=== PATIENT | female | born 1980 | race Caucasian/White ===

== ENCOUNTER 2018-09-08 16:13 | Outpatient (CLI) | payer OTHER | END 2018-09-08 16:14 | disposition home or self-care (01) | LOC: BICMAMMO 16:13 | PROVIDERS: ATTEND Family Medicine | DX: Z12.31 Encounter for screening mammogram for malignant neoplasm of breast (principal) | CPT/HCPCS: 77063; 77067 ==

== ENCOUNTER 2019-03-31 07:51 | Outpatient (CLI) | payer OTHER ==
--- NOTE | 2019-03-31 10:33 | MRI ---
MR of the pelvis with and without contrast: INDICATION: 38-year-old female with endometriosis of the pelvis and peritoneum. TECHNIQUE: Multiplanar multisequence MR images were obtained of the pelvis with and without contrast utilizing 17 cc of MultiHance. No comparisons are available. FINDINGS: The uterus measures 9.7 x 6.0 x 6.6 cm. There is an arcuate uterus present. There is a pedu nculated submucosal fibroid projecting into the endometrial canal, extending off of the fundus measuring 2.0 x 1.7 cm. The junctional zone measures up to 9 mm anteriorly at the level the body. The posterior junction zone measures 6 mm at the level of the body. There are multiple nabothian cysts within the cervix. There is mild free fluid within the cul-de-sac. The right ovary measures 5.3 x 2.3 cm. There is a 2.1 cm involuting cyst within the right ovary. The left ovary measures 3.2 x 2.5 cm. There is no overt signal abnormality to suggest presence of an endometrial implant within the periton eum of the lower pelvis. There are a few scattered diverticula involving the colon. No pathologically enlarged lymph node is evident. No abnormal marrow signal abnormality is noted. IMPRESSION: 1. No evidence of endometrial implants seen within the lower pelvis. 2. Pedunculated submucosal fibroid projecting into the endometrial canal of the fundus. 3. Arcuate uterus. 4. Nabothian cysts. 5. Involuting cyst of the right ovary. 6. Colonic diverticulosis Transcribed Date/Time: 03/31/2019 10:55 AM
== END 2019-03-31 07:52 | disposition home or self-care (01) ==
LOC: MRI 07:51
PROVIDERS: ATTEND Obstetrics & Gynecology
DX: N80.3 Endometriosis of pelvic peritoneum (principal); D25.0 Submucous leiomyoma of uterus; Q51.810 Arcuate uterus; N88.8 Other specified noninflammatory disorders of cervix uteri; N83.291 Other ovarian cyst, right side; K57.30 Diverticulosis of large intestine without perforation or abscess without bleeding
CPT/HCPCS: 72197

== ENCOUNTER 2019-10-05 06:12 | Outpatient (CLI) | payer OTHER ==
[2019-10-05 17:17] LABS: Hemoglobin 11.8 g/dL (12.0-16.0); Mean Corpuscular HGB CONC 34.3 g/dL (32.0-36.0); Mean Corpuscular Volume 87.5 fL (78.0-98.0); Mean Platelet Volume 8.3 fL (7.4-10.4); Platelet Count 197 thou/uL (130-400); RBC Distribution Width 11.6 % (11.5-14.5); Red Blood Cell (RBC) Count 3.93 mill/uL (4.20-5.40); White Blood Cell (WBC) Count 6.8 thou/uL (4.8-10.8)
[2019-10-05 17:31] LABS: BHCG - Serum Negative (NEGATIVE); Pregs Control Background? CLEAR/WHITE (CLR/WHITE); Pregs Control Bar Appear? YES (CONTROL BAR)
== END 2019-10-05 06:13 | disposition home or self-care (01) ==
LOC: LABBT 06:12
PROVIDERS: ATTEND Obstetrics & Gynecology
DX: Z01.812 Encounter for preprocedural laboratory examination (principal); D25.0 Submucous leiomyoma of uterus
CPT/HCPCS: 84703; 85027; 86850; 86900; 86901

== ENCOUNTER 2019-10-11 08:11 | Day surgery (SDC) | payer OTHER ==
[2019-10-05 16:28] VITALS: BMI 29.5
--- NOTE | 2019-10-10 07:35 | HP ---
REASON FOR ADMISSION: Pelvic pain and dyspareunia, status post endometrial ablation with endocavitary uterine fibroids. SCHEDULED PROCEDURE: Total laparoscopic hysterectomy with bilateral salpingectomy. HISTORY OF PRESENT ILLNESS: Ms. Gay who is a 39-year-old, G2, P2, status post endometrial ablation. She has had worsening pelvic pain since earlier this year. Initial exam was worrisome for rectovaginal endometriosis; however, MRI of the pelvis did not reveal any endometriosis; however, 2 cm intracavitary pedunculated fibroid was found in a post ablative state and it was felt to likely be the source of the patient's pain. The patient desires definitive surgical management with hysterectomy. BEAN PICKER HISTORY: x2, negative Pap. PAST MEDICAL HISTORY: None. PAST SURGICAL HISTORY: Tonsils and endometrial ablation. ALLERGIES: NONE. MEDICATIONS: None. SOCIAL HISTORY: Denies tobacco, alcohol, or IV drug abuse. FAMILY HISTORY: Noncontributory. REVIEW OF SYSTEMS: Noncontributory. PHYSICAL EXAMINATION: VITAL SIGNS: Height 5 feet 6 inches, weight 187 pounds, BMI 30, blood pressure 110/72, pulse 69, respirations 18. HEENT: Within normal limits. LUNGS: Clear to auscultation bilaterally. HEART: Regular rhythm. BREASTS: No masses bilaterally. ABDOMEN: Soft, nontender. No rebound or guarding. Vulva without lesions. Vagina, without discharge. Cervix, parous. Uterus, anteverted, but tender posteriorly. No rectovaginal nodule appreciated. Adnexa, no masses. EXTREMITIES: Without clubbing, cyanosis, or edema. IMAGING STUDIES: MRI reveals findings as noted in the history of present illness. IMPRESSION: Uterine fibroids post ablation with chronic pelvic pain. PLAN: TLH and bilateral salpingectomy. Appropriate antibiotic and DVT prophylaxis. Job ID: [id number]
[2019-10-11] MEDS ORDERED: Famotidine/PF 20 mg/2ml Vial ONE (08:58)
[2019-10-11] MEDS ORDERED: CeleCOXIB 100 MG CAP ONE (08:58)
[2019-10-11] MEDS ORDERED: Gabapentin 300 MG CAP ONE (08:58)
[2019-10-11] MEDS ORDERED: Bupivacaine 0.25% HCL 30 ML VIAL ONE (09:23)
[2019-10-11] MEDS ORDERED: Lidocaine 1% w/Epinephrine 1:100K 20 ML VIAL ONE (09:23)
[2019-10-11] MEDS ORDERED: Bupivacaine PF 0.5% 30 ML VIAL ONE (09:25)
[2019-10-11] MEDS ORDERED: HYDROmorphone 0.5 MG/0.5 ML SYRINGE ONE ×2 (09:26→09:27)
[2019-10-11] MEDS ORDERED: Fentanyl 100 MCG/2 ML VIAL ONE (09:26)
[2019-10-11] MEDS ORDERED: Ketamine 50 MG/ML (10ML VIAL) ONE (09:28)
[2019-10-11] MEDS ORDERED: Ondansetron PF 4 MG/2 ML Vial IVP PRN (11:18)
[2019-10-11] MEDS ORDERED: diphenhydrAMINE 25 MG CAP PO PRN (11:18)
[2019-10-11] MEDS ORDERED: Bisacodyl 10 MG SUPP PR PRN (11:18)
[2019-10-11] MEDS ORDERED: Zolpidem Tartrate 5 MG TAB PO PRN (11:18)
[2019-10-11] MEDS ORDERED: Promethazine HCl 25 MG/ML VIAL IM PRN (11:18)
[2019-10-11] MEDS ORDERED: traMADol HCl 50 MG TAB PO PRN ×2 (11:18)
[2019-10-11] MEDS ORDERED: Simethicone Chewable 80 MG TAB PO PRN (11:18)
[2019-10-11] MEDS ORDERED: Morphine 4 MG/ML VIAL SLOW IVP PRN (11:18)
--- NOTE | 2019-10-11 12:01 | OP ---
DATE OF PROCEDURE: 10/11/2019 PREOPERATIVE DIAGNOSES: Chronic pelvic pain, postablation syndrome with posterior cul-de-sac tenderness. POSTOPERATIVE DIAGNOSES: Chronic pelvic pain, postablation syndrome with posterior cul-de-sac tenderness, retrograde menstruation and endometriotic nodule of the posterior cul-de-sac. PROCEDURES PERFORMED: Total laparoscopic hysterectomy, bilateral salpingectomy, and excision of endometriosis nodule. DRAGSAW OPERATOR: SHEFALI Nash. ANESTHESIA: General endotracheal. ESTIMATED BLOOD LOSS: Less than 100 mL. COMPLICATIONS: None. DRAINS: Holden to gravity. FINDINGS: 1. Significant retro menstruation noted at trocar entry. 2. Normal-appearing tubes and ovaries. 3. Inflammatory nodule midline just below the level of the cervix, posterior cul-de-sac, excised, consistent with endometriosis. 4. Hemostasis, clear urine, counts correct at the end of the procedure. DISPOSITION: Recovery room in good condition. DESCRIPTION OF PROCEDURE: After obtaining appropriate informed consent, the patient was taken to the operating room, where general endotracheal anesthesia was achieved without difficulty. The patient was prepped and draped in dorsal lithotomy in Ramez stirrups. Sliding speculum was placed in vagina. Cervix was identified, grasped with single-tooth tenaculum. The LINDA manipulator, 8 obturator, 3.5 cm vaginal figure refinisher and repairer were placed without difficulty. Holden catheter was placed. Hairspring Assembler changed his gloves, turned attention to abdominal portion of procedure. 5 mL of Marcaine was injected at the base of the umbilicus, and a 12 mm skin incision was made. Veress needle was placed inside the abdominal cavity. Insufflation was carried out with carbon dioxide for a maximum pressure of 15. 12 mm noncutting trocar was introduced and confirmation of entry into the peritoneal cavity without trauma to the underlying viscera was noted. Right and left lateral da Oscar ports were placed lateral to the epigastric vessels and an 11-mm assistant in nursing port was placed in the right upper quadrant. The patient was placed in steep Trendelenburg position, and the da Oscar robot docked. Monopolar scissors in the right hand and bipolar fenestrated forceps in the left. Findings as noted in the operative findings were noted. Ureters were identified bilaterally and noted to be well lateral to the cervix. Area suspicious for endometriosis was grasped with the atraumatic graspers and excised and sent for pathologic analysis separately. On the patient's left, the distal fallopian tube was grasped and the medial salpinx coagulated, transected, amputating the tube, and it was removed from the abdominal cavity. The utero-ovarian ligament broad and round were then coagulated and transected. This was carried down to the level of internal cervical os. At the level of internal cervical os, the peritoneum anteriorly was incised sharply and taken over to the level of the internal cervical os on the patient's right. The bladder was dissected bluntly and sharply off the cervix and upper vagina. Skeletonization of the uterine vessels on the patient's left was carried out. These were coagulated and then transected. Attention was turned to the patient's right where identical procedure was carried out, coagulating and transecting the mesosalpinx and amputated the fallopian tube. Then, coagulating and transecting the utero-ovarian, the broad, the round, and down to the level of internal cervical os. The level of internal cervical os skeletonization was carried out with uterine vessels and these were coagulated and transected. The uterine vessels of the patient's right much more tortuous and provided a greater portion of the blood supply of the uterus on the right than the one on the left. Once these were coagulated and then transected, the vagina was entered anteriorly at 12 o'clock and extended from 12 to 3, 12 to 9, 6 to 9, and 6 to 3 amputating the specimen and pulling the uterus into the vagina and maintained pneumoperitoneum. Suction irrigation was carried out along the cuff. Good hemostasis was noted. It was closed using a running continuous 2-0 PDS Stratafix suture from right to left and then back to right in a 2-layer manner. Suction irrigation was carried out. Good hemostasis was noted. Tisseel was initially applied across the surgical pad. However, it did not congeal and it was normally dissipated with Tisseel, so Lazaro was then used. Good hemostasis was noted throughout. After application of Lazaro, a the da Oscar instruments were removed. The da Oscar robot undocked. The abdomen desufflated of carbon dioxide and trocars removed x4. Fascia was reapproximated at the umbilicus using 0 Vicryl on a UR-5 needle. Skin was reapproximated x4 using 4-0 Monocryl and Dermabond. The specimen was removed from the vagina. Cuff was inspected and noted to be dry. Clear urine noted. The patient awakened, extubated to recovery room in good condition. Job ID: [id number]
[2019-10-11] MEDS ORDERED: Rocuronium Bromide 10 MG/ML (10ML VIAL) ONE (14:41)
[2019-10-11] MEDS ORDERED: Lidocaine 1% PF 5 ML VIAL ONE (14:41)
[2019-10-11] MEDS ORDERED: PROPOFOL 200 MG/20 ML VIAL ONE (14:41)
[2019-10-11] MEDS ORDERED: diphenhydrAMINE 50 MG/ML VIAL ONE (14:41)
[2019-10-11] MEDS ORDERED: Ondansetron PF 4 MG/2 ML Vial ONE (14:41)
[2019-10-11] MEDS ORDERED: Glycopyrrolate 0.2 MG/ML 5 ML SYRINGE ONE (14:41)
[2019-10-11] MEDS ORDERED: Dexamethasone 20 MG/5 ML VIAL ONE (14:41)
[2019-10-11] MEDS: Acetaminophen 1,000 MG in Premix Bag 1 BAG IVPB SCH ×2 (16:29→17:32)
[2019-10-11] MEDS: Ketorolac Tromethamine 30 MG/ML VIAL IVP SCH ×2 (16:29→17:30)
[2019-10-11 20:39] VITALS: TEMP 98.2
[2019-10-11] MEDS ORDERED: Gabapentin 300 MG CAP PO SCH (21:00)
[2019-10-11] MEDS: Sodium Chloride 0.9% 1,000 ML IV SCH (21:34)
[2019-10-12] MEDS: Ketorolac Tromethamine 30 MG/ML VIAL IVP SCH (00:11)
[2019-10-12] MEDS: Acetaminophen 1,000 MG in Premix Bag 1 BAG IVPB SCH (00:11)
[2019-10-12 00:21] VITALS: BP 127/74
[2019-10-12] MEDS ORDERED: Ibuprofen 800 MG TAB ONE (05:25)
[2019-10-12] MEDS ORDERED: Ibuprofen 800 MG TAB PO SCH (06:00)
--- NOTE | 2019-10-12 11:41 | DIS ---
DATE OF ADMISSION: 10/11/2019 DATE OF DISCHARGE: 10/12/2019 SUMMARY OF HOSPITAL CARE: The patient was admitted on the 3rd, underwent a TLH, bilateral salpingectomy. She had an unremarkable postoperative course and on postoperative day #1 was voiding with ease and tolerating p.o. PHYSICAL EXAMINATION: VITAL SIGNS: Stable. LUNGS: Clear to auscultation bilaterally. HEART: Regular rate and rhythm. ABDOMEN: Soft and nontender without rebound or guarding. No distention. Perineum dry. EXTREMITIES: No clubbing, cyanosis, or edema. IMPRESSION: Doing well, status post total laparoscopic hysterectomy. PLAN: Discharge home. The patient has scheduled followup and discharge medicines sent out from the office preoperatively. Job ID: [id number]
[2019-10-12 13:34] LABS: Hemoglobin 11.6 g/dL (12.0-16.0); Mean Corpuscular HGB CONC 33.8 g/dL (32.0-36.0); Mean Corpuscular Volume 88.7 fL (78.0-98.0); Mean Platelet Volume 8.8 fL (7.4-10.4); Platelet Count 232 thou/uL (130-400); RBC Distribution Width 11.5 % (11.5-14.5); Red Blood Cell (RBC) Count 3.87 mill/uL (4.20-5.40); White Blood Cell (WBC) Count 11.6 thou/uL (4.8-10.8)
== END 2019-10-12 10:17 | disposition home or self-care (01) ==
LOC: SDC 08:11 → 3SE 11:16 → SDC 10-12 10:17
PROVIDERS: ATTEND Obstetrics & Gynecology
PROC: 0UT74ZZ Resection of Bilateral Fallopian Tubes, Percutaneous Endoscopic Approach (ICD-10-PCS; principal; 2019-10-11)
PROC: 0UT94ZZ Resection of Uterus, Percutaneous Endoscopic Approach (ICD-10-PCS; principal; 2019-10-11)
PROC: 0UDB7ZZ Extraction of Endometrium, Via Natural or Artificial Opening (ICD-10-PCS; principal; 2019-10-11)
DX: N80.0 Endometriosis of uterus (principal); N99.85 Post endometrial ablation syndrome; G89.29 Other chronic pain; R10.2 Pelvic and perineal pain
CPT/HCPCS: 85027; 88307; J0131; J0690; J1100; J1170; J1200; J1885; J2001; J2405; J2704; J3010; S0020; S0028

== ENCOUNTER 2020-12-06 08:56 | Outpatient (CLI) | payer OTHER ==
--- NOTE | 2020-12-06 09:52 | MMO ---
Bilateral MAMMO Bilat Screen [facility]. CLINICAL HISTORY: Patient is 40 years old and is seen for screening. The patient has no family history of breast cancer. The patient has no personal history of cancer. VIEWS: The views performed were: bilateral craniocaudal with tomosynthesis and bilateral mediolateral oblique with tomosynthesis. FILMS COMPARED: The present examination has been compared to a prior imaging study performed at [facility] on 09/08/2018. This study has been interpreted with the assistance of computer-aided detection. MAMMOGRAM FINDINGS: The breasts are heterogeneously dense, which could obscure a lesion on mammography. There are no suspicious masses, suspicious calcifications, or new areas of architectural distortion. IMPRESSION: THERE IS NO MAMMOGRAPHIC EVIDENCE OF MALIGNANCY. AGE APPROPRIATE SCREENING BASED ON RISK FACTORS IS RECOMMENDED. THE RESULTS OF THIS EXAM WERE SENT TO THE PATIENT. ACR BI-RADS Category 1 - Negative MAMMOGRAPHY NOTE: 1. A negative mammogram report should not delay a biopsy if a dominant of clinically suspicious mass is present. 2. Approximately 10% to 15% of breast cancers are not detected by mammography. 3. Adenosis and dense breasts may obscure an underlying neoplasm. Reported by: DARIELA LLAMAS MD Electonically Signed: [id number]
== END 2020-12-06 08:57 | disposition home or self-care (01) ==
LOC: BICMAMMO 08:56
PROVIDERS: ATTEND Family Medicine
DX: Z12.31 Encounter for screening mammogram for malignant neoplasm of breast (principal)
CPT/HCPCS: 77063; 77067

== ENCOUNTER 2024-05-26 12:34 | Outpatient (CLI) | payer BC | END 2024-05-26 12:35 | disposition home or self-care (01) | LOC: BICMAMMO 12:34 | PROVIDERS: ATTEND Family Medicine | DX: Z12.31 Encounter for screening mammogram for malignant neoplasm of breast (principal); N64.89 Other specified disorders of breast | CPT/HCPCS: 77063; 77067 ==

== ENCOUNTER 2024-05-30 14:45 | Outpatient (CLI) | payer BC | END 2024-05-30 14:46 | disposition home or self-care (01) | LOC: BICMAMMO 14:45 | PROVIDERS: ATTEND Family Medicine | DX: N64.89 Other specified disorders of breast (principal) | CPT/HCPCS: G0279 ==

== ENCOUNTER 2024-08-13 18:10 | Emergency (ER) | payer BC ==
[~2024-08-13 18:10] MED LIST: Iopamidol-370 76% 500 ML MDV (1 ML CHARGE) ONE
[2024-08-13 19:28] LABS: #Basophils Less than 0.03 10x3/uL (0.0-0.2); #Eosinphils Less than 0.03 10x3/uL (0.0-0.7); %Basophils 0.2 % (0.0-1.0); %Lymphocytes 9.2 % (21.0-51.0); %Monocytes 3.1 % (0.0-10.0); Hemoglobin 12.5 g/dL (12.0-16.0); Mean Corpuscular HGB CONC 33.8 g/dL (32.0-36.0); Mean Corpuscular Hemoglobin 29.5 pg (27.0-31.0); Mean Corpuscular Volume 87.3 fL (78.0-98.0); Mean Platelet Volume 10.4 fL (7.4-10.4); Platelet Count 167 10x3/uL (130-400); RBC Distribution Width 12.3 % (11.5-14.5); Red Blood Cell (RBC) Count 4.24 mill/uL (4.20-5.40)
[2024-08-13] MEDS ORDERED: methylPREDNISolone Sod Succ/PF 125 MG/2 ML VIAL ONE (19:29)
[2024-08-13 19:37] LABS: ALT (SGPT) 11 U/L (8-55); AST (SGOT) 19 U/L (5-34); Albumin 3.6 g/dL (3.5-5.0); Alkaline Phosphatase 83 U/L (40-110); Anion Gap 12 mmol/L (10-20); BUN (Urea Nitrogen) 10 mg/dL (7.0-18.7); Bilirubin, Total 0.3 mg/dL (0.2-1.2); Calc. Creatinine Clearance 0 mL/min (70-130); Calcium 8.9 mg/dL (7.8-10.44); Carbon Dioxide 23 mmol/L (22-29); Chloride 104 mmol/L (98-107); Estimated GFR 88; Globulin 3.8 g/dL (2.4-3.5); Glucose 102 mg/dL (70-105); Lipase 139 U/L (8-78); Potassium 3.5 mmol/L (3.5-5.1); Protein, Total 7.4 g/dL (6.0-8.3); Sodium 135 mmol/L (136-145)
[2024-08-13 19:43] LABS: Troponin I Less than 0.010 ng/mL (< 0.028)
== END 2024-08-13 20:45 | disposition home or self-care (01) ==
LOC: ERS 18:10
DX: R07.89 Other chest pain (principal); R21 Rash and other nonspecific skin eruption; T39.8X5A Adverse effect of other nonopioid analgesics and antipyretics, not elsewhere classified, initial encounter
CPT/HCPCS: 71045; 71275; 80053; 83690; 84484; 85025; 93005; 96374; J2919; Q9967